=== PATIENT | male | born 1960 | race Caucasian/White ===

== ENCOUNTER 2019-10-12 07:53 | Day surgery (SDC) | payer OTHER ==
[2019-10-11 14:03] VITALS: BMI 29.2
[2019-10-12 09:39] VITALS: TEMP 97.5
[2019-10-12 10:25] VITALS: BP 130/92; PULSE 68
--- NOTE | 2019-10-20 18:32 | PATH ---
Surgical Pathology Report Patient Name: RANDI SHARIF [facility]. Rec. #: [id number] /Age/Gender: 1960 (Age: 58) / M Account: [id number] Location: U-ENDOSCOPY Taken: 10/12/2019 Received: 10/12/2019 Reported: 10/20/2019 Physicians: Candace Varghese M.D. Specimen(s) Received A: ANTRUM B: RIGHT COLON POLYP C: DESCENDING COLON POLYP Clinical History Nausea, dyspepsia, colon cancer screening Postoperative diagnosis: Mild gastritis, colon polyps Final Diagnosis A. ANTRUM, BIOPSY: GASTRIC MUCOSA WITH CHRONIC GASTRITIS. IMMUNOSTAIN FOR H. PYLORI IS NEGATIVE. NEGATIVE FOR INTESTINAL METAPLASIA. B. RIGHT COLON POLYP, POLYPECTOMY: TUBULAR ADENOMA. C. DESCENDING COLON POLYP, BIOPSY: COLONIC MUCOSA WITH MARKED REACTIVE LYMPHOID AGGREGATES. Specimen C was sent to [facility] for hematopathology consultation. The consult report shows the following: A DESCENDING COLON POLYP, BIOPSY ([id number]): REACTIVE LYMPHOID HYPERPLASIA, SEE COMMENT Comment: H&E stained section shows a nodular lymphoid infiltrate composed mostly of small lymphocytes. Immunostains show normal compartmentation of B and T-cells. Small germinal centers present are negative for BCL-2. Cyclin D1 is negative. Plasma cells are polyclonal. The findings are consistent with a reactive process. Clinicopathologic correlation is recommended. See consult report from [place], [place] ([id number]) for details. Electronically Signed Alyssa Dill M.D. Gross Description A. Received in formalin, labeled "biopsy antrum" is a ferreira, irregular portion of soft tissue measuring 0.4 cm. in greatest dimension. The specimen is submitted in toto in one cassette. B. Received in formalin, labeled "biopsy right colon polyp" is a ferreira, irregular portion of soft tissue measuring 0.3 cm. in greatest dimension. The specimen is submitted in toto in one cassette. C. Received in formalin, labeled "biopsy descending colon polyp" are 2 ferreira, irregular portions of soft tissue measuring 0.2 and 0.3 cm. in greatest dimension. The specimens are submitted in toto in one cassette. /10/12/2019 saudi/10/12/2019
== END 2019-10-12 10:20 | disposition home or self-care (01) ==
LOC: JASU-ENDO 07:53
PROVIDERS: ATTEND Internal Medicine Gastroenterology
PROC: 0DBM8ZX Excision of Descending Colon, Via Natural or Artificial Opening Endoscopic, Diagnostic (ICD-10-PCS; 2019-10-12)
PROC: 0DBK8ZX Excision of Ascending Colon, Via Natural or Artificial Opening Endoscopic, Diagnostic (ICD-10-PCS; principal; 2019-10-12 08:45)
DX: Z12.11 Encounter for screening for malignant neoplasm of colon (principal); Z86.010 Personal history of colon polyps; D12.2 Benign neoplasm of ascending colon; D12.4 Benign neoplasm of descending colon; K64.8 Other hemorrhoids